=== PATIENT | female | born 1985 | race Caucasian/White ===

== ENCOUNTER 2017-06-24 16:29 | Emergency (ER) | payer SELFPAY ==
[2017-06-24 16:36] VITALS: BMI 22.0
[2017-06-24] MEDS ORDERED: ZESTRIL TAB 20 MG ONE (18:11)
--- NOTE | 2017-06-24 20:10 | DR.GENAD ---
HPI - PCP Primary Care Physician: LUIS E - HPI Comment HPI Comment: DENIES HEADACHE OR DIZZINESS. APPOINTMENT WILL BE MADE TO SEE SHAHANA BULLOCK. - Complaint/Symptoms Chief Complaint Doctors Comments: BP ELEVATED. OUT OF HER BP MED. Chief Complaint:: PT STATES SHE HAS HIGH BLOOD PRESSURE AND HAS BEEN OUT OF HER MEDS FOR 2 WEEKS. Self Treatment fo Chief Complaint: LISINIPRIL 20 MG. CLONIDINE 0.1MG - Nurses notes reviewed Nurses Notes Review: Yes - Source History Provided: Patient - Mode of Arrival Mode of Arrival: Ambulatory - Timing Onset of Chief Complaint: 06/03/17 Came on: Gradually - Duration Duration: Constant Duration: Days - Severity Severity: Moderate PMH - PMH Past Medical History: Yes Past Medical History: Hypertension Past Surgical History: Yes Surgical History: , Hysterectomy - Family History History of Family Medical Conditions: Yes Family Medical History: Diabetes Mellitus, Heart Failure, Hypertension - Social History Does patient currently use any type of tobacco product: No Have you used tobacco products in the last 12 months: No Type of Tobacco Use: None Does any household member use tobacco: No Alcohol Use: None Do you use any recreational Drugs:: No Lives With: Family Lives Where: Home - infectious screening In the last 2 months have you had wt loss of >10#?: NO Have you had fever, night sweats or hemotysis?: No Have you traveled outside the country in the last 6 months?: No Isolation: Standard ROS - Review of Systems Constitutional: No Symptoms Reported Eyes: No Symptoms Reported ENTM: No Symptoms Reported Respiratoy: No Symptoms Reported Cardiovascular: Other (BP ELEVATED) Gastrointestinal/Abdominal: No Symptoms Reported Genitourinary: No Symptoms Reported Neurological: No Symptoms Reported Musculoskeletal: No Symptoms Reported Integumentary: No Symptoms Reported Hematologic/Lymphatic: No Symptoms Reported Endocrine: No Symptoms Reported All Other Systems: Reviewed and Negative PE - Vital Signs Vitals: Temperature 98.8 F Pulse Rate [Right Radial] 80 Pulse Rate 75 Respiratory Rate 18 Blood Pressure [Left Arm] 148/89 Blood Pressure 175/94 O2 Sat by Pulse Oximetry 100 - General Limitations: No Limitations General Appearance: Alert - Head Head Exam: Normal Inspection - Eyes Eye exam: Normal Appearance - ENT ENT Exam: Normal Oropharynx External Ear Exam: Normal External Inspection TM/Canal Exam: Bilateral Normal Nose Exam: Normal Nose Exam Mouth Exam: Normal Inspection Throat Exam: Normal Inspection - Neck Neck Exam: Trachea Midline - Chest Chest Inspection: Symmetric Chest Wall Rise - Respiratory Respiratory Exam: Normal Lung Sounds Bilat Respiratory Exam: Bilateral Clear to Auscultation - Cardiovascular Cardiovascular Exam: Regular Rate, Normal Rhythm, Normal Heart Sounds - Abdominal Exam Abdominal Exam: Normal Bowel Sounds, Soft. negative: Tenderness - Extremities Extremities Exam: Normal Inspection - Back Back Exam: Normal Inspection - Neurologic Neurological Exam: Alert, Oriented X3 - Psychiatric Psychiatric Exam: Normal Affect, Normal Mood - Skin Skin Exam: Normal Color MDM - Differential Diagnosis Differential Diagnosis: HYPERTENSION/ UNCONTROL Course - Treatment Treatment: SEE ORDERS. LISINOPRIL 20MG IN ED. BP IMPROVED. - Education/Counseling Education/Counseling: Patient, Education Educated On: Diagnosis, Needs for Follow Up - Diagnosis Discharge Problem: Hypertension Qualifiers: Hypertension type: essential hypertension Qualified Code(s): I10 - Essential ( primary) hypertension - Discharge Plan Disposition: 01 HOME, SELF-CARE Condition: Stable Prescriptions: Lisinopril 20 mg PO DAILY #30 tablet - Follow ups/Referrals Follow ups/Referrals: NFD,None [Primary Care Provider] - 3 days - Instructions Instructions: Hypertension, [id number] Additional Instructions: RETURN TO ED IF WORSE.
[2017-06-24 20:17] VITALS: BP 148/89
[2017-06-25] MEDS ORDERED: ZESTRIL TAB 20 MG PO ONE (18:08)
== END 2017-06-24 19:20 | disposition home or self-care (01) ==
LOC: ER 16:42
DX: I10 Essential (primary) hypertension (principal)
CPT/HCPCS: 99282